=== PATIENT | male | born 1960 | race Caucasian/White ===

== ENCOUNTER 2019-04-30 05:13 | Day surgery (SDC) | payer OTHER ==
[~2019-04-30] VITALS: Ht 177.8 cm; Wt 137.9 kg
[~2019-04-30 05:13] MED LIST: XARELTO20 MG PO
[2019-04-30 05:38] LABS: BASOPHILS 0.7 % (0-2); EOSINOPHILS 3.7 % (0-7); HEMATOCRIT 44.3 % (42.0-54.0); HEMOGLOBIN 14.8 g/dL (13.5-17.5); IMMATURE GRANULOCYTES 0.5 % (0-5); LYMPHOCYTES 23.5 % (15-50); MCH 28.2 pg (26.0-34.0); MCHC 33.4 g/dL (31.0-37.0); MCV 84.4 fL (80.0-100.0); MEAN PLATELET VOLUME 8.1 fL (7.4-10.4); MONOCYTES 8.6 % (2-11); PLATELET COUNT 217 10x3/uL (130-400); RBC 5.25 10x6/uL (4.20-6.10); WBC 6.1 10x3/uL (4.8-10.8)
[2019-04-30 05:56] LABS: APTT 29.1 SECONDS (22.8-39.4); INR 0.97 (0.85-1.17); PROTIME 12.4 SECONDS (11.6-15.0)
[2019-04-30 06:01] LABS: ANION GAP 9.5 mmol/L (8-16); CALCIUM 8.3 mg/dL (8.5-10.1); CARBON DIOXIDE 29.6 mmol/L (21.0-32.0); CREATININE - SERUM 1.3 mg/dL (0.6-1.3); POTASSIUM - SERUM 4.1 mmol/L (3.5-5.1)
[2019-04-30] MEDS ORDERED: OMEPRAZOLE CAP 20M (06:10)
[2019-04-30] MEDS ORDERED: ALBUTEROL SULF8.5 GM (06:10)
[2019-04-30] MEDS ORDERED: STELARA (06:11)
[2019-04-30] MEDS ORDERED: BUSPAR5 MG (06:12)
[2019-04-30 06:41] VITALS: BP 154/72; Ht 177.8 cm; Wt 137.9 kg
[2019-04-30] MEDS ORDERED: HYDROCODON-ACE1 EA10 PO (08:20)
--- NOTE | 2019-04-30 09:41 | NUR ---
0926-REC'D FROM RR. AWAKE AND ALERT WITHOUT COMPLAINTS. VSS. DRESSING TO ABD CDI. CL IN EASY REACH,TOLERATING ICE WATER
--- NOTE | 2019-04-30 09:41 | NUR ---
FULL LIQUID TRAY TO ROOM. DENIES COMPLAINTS.
--- NOTE | 2019-04-30 11:31 | NUR ---
1105-DISCHARGE CRITERIA MET. AMBULATED TO RESTROOM AND URINTAED. REMOVED IV WITH CATH INTACT. DISPOSED INTO SHARPS CONTAINER,COVERED SITE WITH A BANDAID. DRESSING TO ABD CDI. REVIEWED DISCHARGE PAPERWORK WITH PT AND SPOUSE. VERBALIZED UNDERSTANDING. ESCORTED OUT BY VOLUNTEER VIA W/C. STABLE CONDITION WITH DISCHARGE PAPERWORK IN HAND. DRIVING HOME
--- NOTE | 2019-05-05 10:07 | OP ---
PATIENT NAME: JOSSIE BOYD JR MEDICAL RECORD: [id number] :58 LOCATION:[facility] ADMISSION DATE: SURGEON: LEONARDO SHEPHERD MD DATE OF OPERATION: 04/30/2019 PREOPERATIVE DIAGNOSES: 1. Ventral incisional hernia. 2. History of DVT, on Xarelto. 3. Morbid obesity with a BMI of 43. POSTOPERATIVE DIAGNOSES: 1. Ventral incisional hernia. 2. History of DVT, on Xarelto. 3. Morbid obesity with a BMI of 43. PROCEDURE: Ventral hernia repair with 4.[address] mesh. SURGEON: Leonardo Shepherd MD REPORT OF PROCEDURE: The patient's abdomen was prepped and draped in sterile fashion. A semicircular incision was made on the inferior aspect of the umbilicus. Electrocautery was used to dissect through the subcutaneous tissues. We came through the base of the umbilical stalk where there was a hernia sac present. The sac was fat containing. As we dissected through this, we were able to push the fatty tissue back into the abdominal cavity. We freed up the fascial ledges from the hernia sac in all directions. We then cleared off the fascia above and below using blunt dissection until we had a good place to house our mesh. A 4.[address] mesh was inserted in an underlay fashion and sutured down on all 4 sides using interrupted 0 Prolenes. We then irrigated out the wound with normal saline. The fascia was closed over the mesh using running 0 Vicryl. We inspected the area and assured there was no sign of any bleeding. The umbilicus was tacked down to the fascia using a single interrupted 3-0 Vicryl and the subcutaneous tissues were reapproximated with interrupted 3-0 Vicryl. The skin was closed with running subcutaneous 5-0 Monocryl. A total of 10 mL of 0.25% Marcaine plain was infused into the surrounding tissues and the wound was dressed appropriately. COMPLICATIONS: None. CONDITION: Stable. ANESTHESIA: General endotracheal and local. BLOOD LOSS: Minimal. TRANSINT:[id number] Voice Confirmation ID: [id number] DOCUMENT ID: [id number] OPERATIVE REPORT [id number] JOSSIE BODY JR LEONARDO SHEPHERD MD at 1007 CC: HEIDY ROBERSON DO [id number] DICTATION DATE: 04/30/19 0828 SLITTER CUT OFF OPERATOR: 04/30/19 1055 [facility] 04/30/19 [facility] [address] [id number]
== END 2019-04-30 11:05 | disposition home or self-care (01) ==
LOC: D.OPS 05:13 → D.PAN 07:15 → D.OPS 07:15
PROVIDERS: Anesthesiology; ATTEND Surgery
DX: K43.2 Incisional hernia without obstruction or gangrene (principal); Z86.718 Personal history of other venous thrombosis and embolism; Z79.01 Long term (current) use of anticoagulants; E66.01 Morbid (severe) obesity due to excess calories; Z68.41 Body mass index [BMI] 40.0-44.9, adult; Z01.812 Encounter for preprocedural laboratory examination

== ENCOUNTER 2020-04-12 07:22 | Inpatient (IN) | payer OTHER ==
[~2020-04-12] VITALS: Ht 177.8 cm; Wt 131.8 kg
[2020-04-12] VITALS (12 sets, daily range): BP systolic 114–172; BP diastolic 70–114; BMI 43.1
--- NOTE | ~2020-04-12 | OP ---
PATIENT NAME: JOSSIE BOYD JR MEDICAL RECORD: [id number] :58 LOCATION:.[facility] D.2313 ADMISSION DATE:04/12/20 SURGEON: FLOR SHEPHERD MD DATE OF OPERATION: 04/24/2020 PREOPERATIVE DIAGNOSES: 1. Respiratory failure, on the ventilator. 2. COVID. 3. Bacteremia. 4. Possible line sepsis. POSTOPERATIVE DIAGNOSES: 1. Respiratory failure, on the ventilator. 2. COVID. 3. Bacteremia. 4. Possible line sepsis. PROCEDURES: 1. Left subclavian vein Trialysis catheter exchange. 2. Left radial arterial line placement. SURGEON: Flor Shepherd MD REPORT OF PROCEDURE: The patient's left wrist was prepped and draped in sterile fashion. Using a 20-gauge dart, I was able to access the patient's left radial artery. We had good pulsatile flow. We were able to suture this into place with 3-0 silks and got a good pressure reading with the systolic of 100. We then applied a dressing to this area. We then approached the patient's left subclavian region where there was an indwelling 20 cm Trialysis catheter. We prepped and draped this area including the Trialysis catheter. A wire was advanced through the distal port and we were able to remove the indwelling catheter. A new 20 cm Trialysis catheter was inserted over the wire and sutured into place with 3-0 nylons. This flushed appropriately with normal saline and had good blood return. COMPLICATIONS: None. CONDITION: Critical. ANESTHESIA: General endotracheal. BLOOD LOSS: Minimal. Procedure done in the ICU at the bedside. TRANSINT:[id number] Voice Confirmation ID: [id number] DOCUMENT ID: [id number] OPERATIVE REPORT [id number] JOSSIE BOYD JR FLOR SHEPHERD MD CC: [id number] DICTATION DATE: 04/24/20 1024 NET PROGRAMMER: 04/24/20 1339 ADM IN [facility] [address] [place] [address]
[~2020-04-12 07:22] MED LIST changes: +ALBUTEROL SULF8.5 GM; +BUSPAR5 MG; +HYDROCODON-ACE1 EA10 PO; +OMEPRAZOLE CAP 20M; +STELARA
[2020-04-12 08:27] LABS: ANION GAP 9.4 mmol/L (8-16); CALCIUM 8.3 mg/dL (8.5-10.1); CARBON DIOXIDE 26.6 mmol/L (21.0-32.0); CREATININE - SERUM 1.6 mg/dL (0.6-1.3)
[2020-04-12 08:29] LABS: BASOPHILS 0.2 % (0-2); EOSINOPHILS 0.2 % (0-7); HEMATOCRIT 39.2 % (42.0-54.0); HEMOGLOBIN 12.6 g/dL (13.5-17.5); LYMPHOCYTES 3.8 % (15-50); MCH 27.7 pg (26.0-34.0); MCHC 32.1 g/dL (31.0-37.0); MCV 86.2 fL (80.0-100.0); MEAN PLATELET VOLUME 8.7 fL (7.4-10.4); MONOCYTES 2.1 % (2-11); NEUTROPHILS 92.7 % (40-80); PLATELET COUNT 233 10x3/uL (130-400); RBC 4.55 10x6/uL (4.20-6.10); WBC 12.6 10x3/uL (4.8-10.8)
[2020-04-12 08:46] LABS: ALBUMIN 2.4 g/dL (3.4-5.0); BILIRUBIN - TOTAL 0.7 mg/dL (0.2-1.3); PROTEIN - SERUM 6.6 g/dL (6.4-8.2)
[2020-04-12 08:58] LABS: C-REACTIVE PROTEIN 24.6 mg/dL (0.0-0.9)
--- NOTE | 2020-04-12 10:45 | NUR ---
ZITHROMAX STOPPED AT THIS TIME.
--- NOTE | 2020-04-12 11:00 | NUR ---
PT LAYINGIN BED. NO DISTRESS NOTED. COLOR WNL FOR RACE. WILL CONTINUE TO MONITOR.
--- NOTE | 2020-04-12 12:08 | NUR ---
PT REPORTS IMPROVEMENT IN COUGH AT THIS TIME.
--- NOTE | 2020-04-12 12:08 | NUR ---
PT PROVIDED WITH LUNCH TRAY.
[2020-04-12 14:45] LABS: APTT 42.2 SECONDS (22.8-39.4); INR 1.6 (0.85-1.17); PROTIME 18.9 SECONDS (11.6-15.0)
[2020-04-12 14:46] LABS: D-DIMER-QUANTITATIVE 0.28 ug/mLFEU (0.20-0.54)
[2020-04-12 14:56] LABS: % SATURATION 7 % (15-55); IRON 15 ug/dl (35-150); TOTAL IRON BIND CAPACITY 190 ug/dl (260-445); UNSAT IRON BIND CAPACITY 175 ug/dl (150-375)
[2020-04-12 15:09] LABS: CKMB 1.2 U/L (0.0-3.6); CREATINE KINASE 106 UL (21-232); MAGNESIUM - SERUM 1.7 mg/dL (1.8-2.4)
[2020-04-12 15:10] LABS: TROPONIN-I < 0.017 ng/mL (0.000-0.060)
--- NOTE | 2020-04-12 15:48 | NUR ---
CALLED REPORT TO STALIN
--- NOTE | 2020-04-12 17:51 | NUR ---
PT ARRIVED IN THE UNIT. SEE ASSESSMENT IN THE PTS FLOW SHEET. PT AMBULATORY BUT BECAME SOB WHENEVER HE LAYED IN BED. VSS. PT ON A STARR MASK. VSS AT THIS TIME. PO FLUIDS PROVIDED. CALL LIGHT IN REACH. WILL CONT NPOC.
--- NOTE | 2020-04-12 18:35 | NUR ---
DR ROMAN PAGED R/T NO MEDICATIO ORDERED. DR ROMAN PAGED BACK AND STATED HE WILL PUT THE ORDERS IN SHORTLY.
[2020-04-12 20:40] LABS: CKMB 3.1 U/L (0.0-3.6); CREATINE KINASE 139 UL (21-232)
[2020-04-12 20:59] LABS: TROPONIN-I < 0.017 ng/mL (0.000-0.060)
--- NOTE | 2020-04-12 23:36 | NUR ---
2230 PT SPO2 DECREASED TO 84 SUSTAINED ON VENTIMASK. NRB APPLIED AT 15L. SPO2 INCREASED TO 92% NAD OR NEEDS AT THIS TIME. WILL CONTINUE TO MONITOR
[2020-04-13] VITALS (44 sets, daily range): BP systolic 74–169; BP diastolic 43–118; Ht 177.8 cm; Wt 131.8 kg
--- NOTE | 2020-04-13 00:33 | NUR ---
0015 CT MANAGER PAGED DUE TO BP 168/123 0030 HYDRALAZINE 10 MG IV GIVEN. NAD OR NEEDS AT THIS TIME. WILL CONTINUE TO MONITOR
[2020-04-13 02:12] LABS: CKMB 3.4 U/L (0.0-3.6); CREATINE KINASE 174 UL (21-232); TROPONIN-I < 0.017 ng/mL (0.000-0.060)
--- NOTE | 2020-04-13 02:23 | NUR ---
PATIENT INTUBATED AT THIS TIME
--- NOTE | 2020-04-13 04:05 | NUR ---
0200 ANESTHESIA AT BEDSIDE FOR PT INTUBATION. SEDATION STARTED PER MD ORDERS. ETT, OGT, BLACKWELL CATH STARTED PER ORDERS. NAD AT THIS TIME. WILL CONTINUE TO MONITOR
[2020-04-13 04:55] LABS: BASOPHILS 0.1 % (0-2); EOSINOPHILS 0 % (0-7); HEMATOCRIT 37.8 % (42.0-54.0); HEMOGLOBIN 11.8 g/dL (13.5-17.5); IMMATURE GRANULOCYTES 0.3 % (0-5); LYMPHOCYTES 3.1 % (15-50); MCH 27.4 pg (26.0-34.0); MCHC 31.2 g/dL (31.0-37.0); MCV 87.9 fL (80.0-100.0); MEAN PLATELET VOLUME 8.4 fL (7.4-10.4); MONOCYTES 3.3 % (2-11); NEUTROPHILS 93.2 % (40-80); PLATELET COUNT 243 10x3/uL (130-400); RDW 14.4 % (11.5-14.5); WBC 11.6 10x3/uL (4.8-10.8)
[2020-04-13 05:37] LABS: ALBUMIN 2.2 g/dL (3.4-5.0); ANION GAP 8.3 mmol/L (8-16); BILIRUBIN - TOTAL 0.28 mg/dL (0.2-1.3); CALCIUM 7.6 mg/dL (8.5-10.1); CARBON DIOXIDE 28.8 mmol/L (21.0-32.0); CREATININE - SERUM 1.8 mg/dL (0.6-1.3); MAGNESIUM - SERUM 1.9 mg/dL (1.8-2.4); PHOSPHOROUS 4.8 mg/dL (2.5-4.9); POTASSIUM - SERUM 4.1 mmol/L (3.5-5.1); PROTEIN - SERUM 6.2 g/dL (6.4-8.2)
--- NOTE | 2020-04-13 06:42 | NUR ---
0500 SPOKE WITH PT ON THE PHONE. SHE IS AWARE OF THE PATIENT'S CHANGE IN CONDITION. WILL CONTINUW TO HANS
--- NOTE | 2020-04-13 10:40 | NUR ---
SPOKE WITH BARRY BOYD. SHE GAVE CONSENT FOR YAYO AND CVL PLACEMENT.
--- NOTE | 2020-04-13 11:00 | NUR ---
DR MEANS IN THE UNIT AND WILL PLACE YAYO AND CVL.
--- NOTE | 2020-04-13 14:03 | NUR ---
DR MEANS AT THE PTS BEDSIDE. LEFT FEMORAL YAYO PLACED AND LEFT SUBCLAVIAN CVL PLACED. CXR PLACED.
--- NOTE | 2020-04-13 14:30 | NUR ---
PT HYPOTENSIVE 60/40'S. DR ROBERSON IN THE UNIT. OK TO START MURALI. AFTER MURALI WAS INITIATED, IT WAS MAXED OUT. DR ROMAN NOTIFIED. STOP MURALI AND START LEVOPHED. GIVE 12.5 ALBUMIN NOW.
--- NOTE | 2020-04-13 15:55 | NUR ---
PT DESTATING TO 79%. RT IN THE ROOM. DR ROMAN NOTIFIED. INCREASE PEEP TO 30 FOR 30 SECONDS AND THE CHANGE PEEP SETTINGS TO 14. RT NOTIFIED. OBTAIN ABG AFTERWARDS.
--- NOTE | 2020-04-13 16:36 | NUR ---
ABG RESULTS READ TO DR ROMAN AND MADE AWARE OF THE PT BEING ANURIC. STAT BMP AND GIVE 1 GRAM CA CHOLORIDE.
[2020-04-13 16:48] LABS: ANION GAP 11.9 mmol/L (8-16); CALCIUM 7.6 mg/dL (8.5-10.1); CARBON DIOXIDE 26.4 mmol/L (21.0-32.0)
[2020-04-13 17:11] LABS: CREATININE - SERUM 3.4 mg/dL (0.6-1.3); POTASSIUM - SERUM 5.3 mmol/L (3.5-5.1)
--- NOTE | 2020-04-13 17:49 | NUR ---
DR ROMAN PAGED ABOUT BMP. STOP IV FLUIDS, DC REMDESIVIR. CONSULT RENAL.
--- NOTE | 2020-04-13 18:19 | NUR ---
SPOKE WITH DR MCCALLUM ABOUT CONSULT. GIVE 5 UNITS INSULIN NOW, 5000 UNITS HEPARIN BID. BMP AT 2200 AND CALL WITH RESULTS.
[2020-04-14] VITALS (52 sets, daily range): BP systolic 84–200; BP diastolic 50–160
--- NOTE | 2020-04-14 05:55 | NUR ---
0500 UNABLE TO OBTAIN LABS VIA [facility]. CALLED LAB AND SPOKE WITH ENRIQUE Cheung/Ron UNABLE TO OBTAIN LAB FROM [facility]. SHE STATES THAT A HYGIENE TEACHER WILL COME OBTAIN LABS RICHELLE.
--- NOTE | 2020-04-14 06:29 | PRO ---
PATIENT:JOSSIE BOYD JR MEDICAL RECORD: [id number] : 58 LOCATION:.[facility] D.2313 ADMISSION DATE: 04/12/20 PROCEDURE PERFORMED BY: ASHLEE MEANS MD DATE OF PROCEDURE: 04/13/2020 We were consulted to place a central IV access and arterial line for monitoring in this COVID positive patient. The patient is currently on vasopressors also. The patient is currently intubated. A left femoral arterial line was placed using sterile conditions and ultrasound guidance. Sterile conditions were placed using a dressing and Biopatch. A left subclavian for central IV access was obtained and using sterile conditions. Under Betadine prep and drape, a Seldinger wire technique, a triple lumen was placed over this wire and all ports were aspirated after placement of the triple lumen catheter into the left subclavian vein. The catheter was then secured with 2-0 Prolene and a Biopatch was placed and a dressing used to secure the Biopatch and triple lumen in place. TRANSINT:[id number] Voice Confirmation ID: [id number] DOCUMENT ID: [id number] ASHLEE MEANS MD at 0629 CC: [id number] DICTATION DATE: 04/13/20 1527 CREW CALLER: 04/14/20 0420 ADM IN [id number] [place] [address]
--- NOTE | 2020-04-14 06:44 | NUR ---
0615 LABS DRAWN VIA [facility] AND DELIVERED TO THE LAB
[2020-04-14 06:53] LABS: BASOPHILS 0.2 % (0-2); EOSINOPHILS 0 % (0-7); HEMATOCRIT 38.6 % (42.0-54.0); HEMOGLOBIN 12.1 g/dL (13.5-17.5); IMMATURE GRANULOCYTES 1.1 % (0-5); LYMPHOCYTES 5.2 % (15-50); MCH 27.5 pg (26.0-34.0); MCHC 31.3 g/dL (31.0-37.0); MCV 87.7 fL (80.0-100.0); MEAN PLATELET VOLUME 8.2 fL (7.4-10.4); NEUTROPHILS 88.5 % (40-80); PLATELET COUNT 244 10x3/uL (130-400); RDW 14.6 % (11.5-14.5); WBC 10.5 10x3/uL (4.8-10.8)
[2020-04-14 07:40] LABS: ALBUMIN 1.9 g/dL (3.4-5.0); BILIRUBIN - TOTAL 0.24 mg/dL (0.2-1.3); C-REACTIVE PROTEIN 14.6 mg/dL (0.0-0.9); CARBON DIOXIDE 19.8 mmol/L (21.0-32.0); CREATININE - SERUM 4.1 mg/dL (0.6-1.3); MAGNESIUM - SERUM 1.9 mg/dL (1.8-2.4); PROTEIN - SERUM 5.5 g/dL (6.4-8.2)
[2020-04-14 07:41] LABS: ANION GAP 17.3 mmol/L (8-16); POTASSIUM - SERUM 4.1 mmol/L (3.5-5.1)
[2020-04-14 07:45] LABS: CALCIUM 6.6 mg/dL (8.5-10.1)
--- NOTE | 2020-04-14 09:08 | NUR ---
PAGED DR. SHEPHERD RE: TRIALYSIS CATH PLACEMENT
--- NOTE | 2020-04-14 09:45 | NUR ---
CONSENT FOR TRIALYSIS CATH GIVEN BY BARRY BOYD AND WITNESSED BY DANIAL ARIAS RN
--- NOTE | 2020-04-14 10:50 | NUR ---
FIO2 TITRATED TO 80% BY TERENCE WITH RT
--- NOTE | 2020-04-14 11:15 | NUR ---
DR. SHEPHERD AT BEDSIDE FOR TRIALYSIS CATH PLACEMENT
--- NOTE | 2020-04-14 11:50 | NUR ---
DR. ROBERSON AT BEDSIDE, ORDERED VIT C & D TO START TODAY, WILL DISCUSS ZINC WITH DR ROMAN BEFORE ADDING TO MED PROFILE
--- NOTE | 2020-04-14 13:30 | NUR ---
HD BEGAN, VSS, WILL CONTINUE TO MONITOR
--- NOTE | 2020-04-14 15:30 | NUR ---
HD COMPLETED WITHOUT DIFFICULTY, 2L OFF
--- NOTE | 2020-04-14 16:30 | NUR ---
PC FROM [facility], NEW ORDERS GIVEN FOR 1800 BMP
[2020-04-14 19:12] LABS: ANION GAP 17.1 mmol/L (8-16); CALCIUM 7.2 mg/dL (8.5-10.1); CARBON DIOXIDE 24.6 mmol/L (21.0-32.0); CREATININE - SERUM 4.9 mg/dL (0.6-1.3); POTASSIUM - SERUM 4.7 mmol/L (3.5-5.1)
[2020-04-15] VITALS (41 sets, daily range): BP systolic 80–157; BP diastolic 49–85
[2020-04-15 05:24] LABS: BASOPHILS 0.1 % (0-2); EOSINOPHILS 0.1 % (0-7); HEMATOCRIT 34.8 % (42.0-54.0); IMMATURE GRANULOCYTES 1.9 % (0-5); LYMPHOCYTES 9.6 % (15-50); MCH 27.7 pg (26.0-34.0); MCHC 31.6 g/dL (31.0-37.0); MCV 87.7 fL (80.0-100.0); MEAN PLATELET VOLUME 8.4 fL (7.4-10.4); MONOCYTES 8.9 % (2-11); NEUTROPHILS 79.4 % (40-80); RBC 3.97 10x6/uL (4.20-6.10); RDW 14.7 % (11.5-14.5)
[2020-04-15 05:46] LABS: PLATELET COUNT 185 10x3/uL (130-400); WBC 7.4 10x3/uL (4.8-10.8)
[2020-04-15 05:57] LABS: ALBUMIN 2.1 g/dL (3.4-5.0); ANION GAP 17.6 mmol/L (8-16); BILIRUBIN - TOTAL 0.24 mg/dL (0.2-1.3); CALCIUM 7.1 mg/dL (8.5-10.1); CARBON DIOXIDE 24.3 mmol/L (21.0-32.0); MAGNESIUM - SERUM 2.2 mg/dL (1.8-2.4); POTASSIUM - SERUM 4.9 mmol/L (3.5-5.1)
[2020-04-15 06:01] LABS: CREATININE - SERUM 6.2 mg/dL (0.6-1.3)
[2020-04-15 08:13] LABS: HEPATITIS C ANTIBODY 0.2 (0.0-0.9)
--- NOTE | 2020-04-15 13:54 | NUR ---
Nutrition Follow-up: Chart reviewed. Patient dialysis yesterday, possible HD again today. Remaind intubated and sedated at this time. Diet: NPO Last BM: 04/13/20. Wt: 300# (04/13/20) Meds noted: levophed, diprivan @ 28.4mL/hr = 750kcal, vit D, vit C Labs noted: BUN 58(H), Cr 6.2(H), GFR 10(L) Recommend begin TF as soon as medically feasible. Recommend Pulmocare @ 25mL/hr with increase to goal rate of 50mL/hr. RD following.
--- NOTE | 2020-04-15 21:16 | MORECARE ---
CASE MANAGEMENT DISCHARGE SUMMARY PATIENT: JOSSIE BOYD UNIT: [id number] ADM DATE: 04/12/20 AGE: 59 : 58 SEX: M ROOM/BED: D.2313 AUTHOR: RONAL DELGADO PHYSICIAN: REFERRING PHYSICIAN: SHA GARZA MD DATE OF SERVICE: 04/15/20 Discharge Plan Patient Name: JOSSIE BOYD [facility] [facility] 1960 Planned Disposition: Anticipated Discharge Date: Discharge Date: Expected LOS: Initial Reviewer: [email or web address] Initial Review Date: 04/12/2020 Generated: 04/15/20 10:15 pm Patient Name: JOSSIE BOYD Page 34235 at 2116 All edits/amendments must be made on the electronic document DICTATION DATE: 04/15/202115 GLASSWORKER: VIRGINIE 04/15/202115 RPT#: [id number] DC DATE: STATUS: ADM IN [facility] [address] [place] [address] END OF REPORT
--- NOTE | 2020-04-15 21:23 | MORECARE ---
CASE MANAGEMENT DISCHARGE SUMMARY PATIENT: JOSSIE BOYD UNIT: [id number] ADM DATE: 04/12/20 AGE: 59 : 58 SEX: M ROOM/BED: D.2313 AUTHOR: SANDY,DOC PHYSICIAN: REFERRING PHYSICIAN: SHA GARZA MD DATE OF SERVICE: 04/15/20 Discharge Plan Patient Name: JOSSIE BOYD Facility: [facility]:[place] : 1960 Planned Disposition: Anticipated Discharge Date: Discharge Date: Expected LOS: Initial Reviewer: [email or web address] Initial Review Date: 04/12/2020 Generated: 04/15/20 10:22 pm Comments DCP- Discharge Planning Updated by [email or web address]: Luda Moore on 04/15/20 8:[address] Patient Name: JOSSIE BOYD Admission Status: ER Accout number: [id number] Admission Date: 04-12-2020 : 1960 Admission Diagnosis:COVID-19 Attending: SHA GARZA Current LOS: 3 Anticipated DC Date: Planned Disposition: Primary Insurance: [employer] PPO Discharge Planning Comments: CM called and spoke with patient's Veronica to complete initial dc planning assessment. CM educated patient on the CM role and verbal consent given by patient to complete assessment. Patient lives at home with family. Patient is independent. At discharge patient plans to return home and feels this is a safe discharge. CM discussed availability of home health, rehab services, and medical equipment. Patient will have family to transport home. Patient denied known discharge needs at this time. CM will continue to follow and will assist as needed with dc plans/needs. Surgical Product Sales Consultant: Luda Moore DCPIA - Discharge Planning Initial Assessment Updated by [email or web address]: Luda Moore on 04/15/20 9:15 pm * Is the patient Alert and Oriented? No * How many steps to enter\exit or inside your home? * PCP ANNALISEO * Pharmacy [facility] * Preadmission Environment Home with Family * ADLs Independent * Equipment None * List name and contact numbers for known caregivers / representatives who currently or will assist patient after discharge: VERONICA BOYD - - [phone] * Verbal permission to speak to the caregivers and representatives has been obtained from the patient. Yes * Community resources currently utilized None * Additional services required to return to the preadmission environment? No * Can the patient safely return to the preadmission environment? Yes * Has this patient been hospitalized within the prior 30 days at any hospital? No Last DP export: 04/15/20 8:16 p Patient Name: JOSSIE BOYD Page [phone] at 2123 All edits/amendments must be made on the electronic document DICTATION DATE: 04/15/202122 MATERIAL PROCESSOR: VIRGINIE 04/15/202122 RPT#: [id number] DC DATE: STATUS: ADM IN [facility] [address] [place] [address] END OF REPORT
[2020-04-16] VITALS (24 sets, daily range): BP systolic 91–143; BP diastolic 50–77
[2020-04-16 05:25] LABS: BASOPHILS 0.2 % (0-2); EOSINOPHILS 0.3 % (0-7); IMMATURE GRANULOCYTES 4.6 % (0-5); LYMPHOCYTES 9.2 % (15-50); MCH 27.4 pg (26.0-34.0); MCHC 31.4 g/dL (31.0-37.0); MCV 87.3 fL (80.0-100.0); MEAN PLATELET VOLUME 8.4 fL (7.4-10.4); MONOCYTES 8.1 % (2-11); NEUTROPHILS 77.6 % (40-80); PLATELET COUNT 193 10x3/uL (130-400); RBC 4.01 10x6/uL (4.20-6.10); RDW 14.8 % (11.5-14.5); WBC 8.7 10x3/uL (4.8-10.8)
[2020-04-16 05:41] LABS: ALBUMIN 2.5 g/dL (3.4-5.0); ANION GAP 18.3 mmol/L (8-16); BILIRUBIN - TOTAL 0.42 mg/dL (0.2-1.3); CARBON DIOXIDE 24.6 mmol/L (21.0-32.0); CREATININE - SERUM 7.2 mg/dL (0.6-1.3); MAGNESIUM - SERUM 2.3 mg/dL (1.8-2.4); POTASSIUM - SERUM 4.9 mmol/L (3.5-5.1); PROTEIN - SERUM 6.4 g/dL (6.4-8.2)
[2020-04-16 05:43] LABS: CALCIUM 6.9 mg/dL (8.5-10.1)
--- NOTE | 2020-04-16 18:47 | NUR ---
0800-RECIEVED PER FLOW SHEET-RESPONDS TO VERBAL-NOTED SATS 90%-- 0900-DR ROMAN AT BEDSIDE-STATUS REPORT GIVEN-BLOOD BANK CLARIFIED COVID ANTIBODY PLASMA ORDER-AND COMPLETED BY DR ROMAN-LEVOPHED GTT STARTED AT [facility]-FOR DIALYSIS 0945-CALLED WITH PLAN FOR DIALYSIS AND PLASMA-CONSENT OBTAINED-FOR SAME 1300-DIALYSIS SET UP IN PROGRESS- NOTIFIED OF SAME 1400-NOTED DECREASE IN O2 SAT TO 77-DIALYSIS IN PROGRESS-DR ROMAN NOTIFIED-AT BEDSIDE-RT CALLED -SEE RT NOTE-LUNG RECOVERY DONE PEEP 30 FOR 30SEC-WITH RETURN TO PEEP OF 14-SAT INCREASE TO 88%-DIALYSIS [id number]-LEVOPHED AT [facility] 1515-DIALYSIS COMPLETED 1600- CALLED WITH UPDATE ON DIALYSIS RESULTS AND CURRENT STAT-MADE AWARE FFP COMPLETED 1800-COMPLETE AM CARE DONE
[2020-04-17] VITALS (49 sets, daily range): BP systolic 78–146; BP diastolic 47–78
[2020-04-17 06:04] LABS: BASOPHILS 0.2 % (0-2); EOSINOPHILS 0.2 % (0-7); HEMATOCRIT 35.1 % (42.0-54.0); IMMATURE GRANULOCYTES 5.7 % (0-5); LYMPHOCYTES 6.4 % (15-50); MCH 27.3 pg (26.0-34.0); MCHC 31.3 g/dL (31.0-37.0); MCV 87.1 fL (80.0-100.0); MEAN PLATELET VOLUME 8.7 fL (7.4-10.4); MONOCYTES 6.1 % (2-11); NEUTROPHILS 81.4 % (40-80); PLATELET COUNT 223 10x3/uL (130-400); RBC 4.03 10x6/uL (4.20-6.10); RDW 14.7 % (11.5-14.5)
[2020-04-17 06:08] LABS: WBC 11.6 10x3/uL (4.8-10.8)
[2020-04-17 06:22] LABS: ALBUMIN 2.5 g/dL (3.4-5.0); ANION GAP 16.1 mmol/L (8-16); BILIRUBIN - TOTAL 0.53 mg/dL (0.2-1.3); CALCIUM 7.2 mg/dL (8.5-10.1); CARBON DIOXIDE 27.1 mmol/L (21.0-32.0); CREATININE - SERUM 7.7 mg/dL (0.6-1.3); MAGNESIUM - SERUM 2.6 mg/dL (1.8-2.4); POTASSIUM - SERUM 5.2 mmol/L (3.5-5.1); PROTEIN - SERUM 6.7 g/dL (6.4-8.2)
--- NOTE | 2020-04-17 11:56 | NUR ---
NOTED ABP 78/42-NIBP-82/48-STARTED LEVOPHED AT [facility]-DR ROBERSON MADE AWRE- CALLED UNIT AND UPDATE GIVEN
--- NOTE | 2020-04-17 12:16 | NUR ---
DR ROBERSON AT BEDSIDE-SPOKE WITH AND UPDATED CURRENT NEED FOR LEVOPHED AND PLANNED DIALYSIS FOR TODAY
[2020-04-18] VITALS (23 sets, daily range): BP systolic 91–144; BP diastolic 55–76
[2020-04-18 06:37] LABS: MAGNESIUM - SERUM 2.4 mg/dL (1.8-2.4)
[2020-04-18 06:46] LABS: BASOPHILS 0.2 % (0-2); EOSINOPHILS 0.9 % (0-7); HEMATOCRIT 30.6 % (42.0-54.0); HEMOGLOBIN 9.9 g/dL (13.5-17.5); IMMATURE GRANULOCYTES 7.3 % (0-5); LYMPHOCYTES 6.6 % (15-50); MCHC 32.4 g/dL (31.0-37.0); MCV 86.7 fL (80.0-100.0); MEAN PLATELET VOLUME 8.4 fL (7.4-10.4); MONOCYTES 6.3 % (2-11); NEUTROPHILS 78.7 % (40-80); PLATELET COUNT 204 10x3/uL (130-400); RBC 3.53 10x6/uL (4.20-6.10); RDW 14.8 % (11.5-14.5); WBC 9.4 10x3/uL (4.8-10.8)
[2020-04-18 06:55] LABS: ANION GAP 17.7 mmol/L (8-16); CARBON DIOXIDE 21.8 mmol/L (21.0-32.0); CREATININE - SERUM 7.3 mg/dL (0.6-1.3); POTASSIUM - SERUM 4.5 mmol/L (3.5-5.1)
[2020-04-18 06:57] LABS: CALCIUM 6.4 mg/dL (8.5-10.1)
--- NOTE | 2020-04-18 07:15 | NUR ---
REPORT RECIEVED, SHIFT ASSESSMENT COMPLETE, PT IS SEDATED ON VENT, ON 80% FIO2, ALL PPP, VSS, WILL CON'T TO MONITOR
--- NOTE | 2020-04-18 13:05 | NUR ---
Nutrition follow-up: Pt intubated, sedated with propofol @ 32.4 ml/hr Nepro started @ 30 ml/hr Levophed in use Labs reviewed Wt: 300# Recommend Nepro at goal rate of 50 ml/hr RDN following.
[2020-04-19] VITALS (24 sets, daily range): BP systolic 87–145; BP diastolic 5–79
[2020-04-19 08:37] LABS: BASOPHILS 0.2 % (0-2); EOSINOPHILS 1.2 % (0-7); HEMATOCRIT 36.1 % (42.0-54.0); HEMOGLOBIN 11.7 g/dL (13.5-17.5); IMMATURE GRANULOCYTES 8.8 % (0-5); LYMPHOCYTES 4.6 % (15-50); MCH 27.8 pg (26.0-34.0); MCHC 32.4 g/dL (31.0-37.0); MCV 85.7 fL (80.0-100.0); MEAN PLATELET VOLUME 8.2 fL (7.4-10.4); MONOCYTES 4.2 % (2-11); PLATELET COUNT 226 10x3/uL (130-400); RBC 4.21 10x6/uL (4.20-6.10); RDW 14.6 % (11.5-14.5)
[2020-04-19 08:41] LABS: WBC 14.3 10x3/uL (4.8-10.8)
[2020-04-19 09:25] LABS: ALBUMIN 2.5 g/dL (3.4-5.0); ANION GAP 19.2 mmol/L (8-16); BILIRUBIN - TOTAL 0.66 mg/dL (0.2-1.3); CALCIUM 7.7 mg/dL (8.5-10.1); CARBON DIOXIDE 24.6 mmol/L (21.0-32.0); CREATININE - SERUM 8.4 mg/dL (0.6-1.3); POTASSIUM - SERUM 4.8 mmol/L (3.5-5.1); PROTEIN - SERUM 7.5 g/dL (6.4-8.2)
[2020-04-20] VITALS (24 sets, daily range): BP systolic 91–149; BP diastolic 49–775
[2020-04-20 05:53] LABS: BASOPHILS 0.3 % (0-2); EOSINOPHILS 1.2 % (0-7); HEMATOCRIT 32.8 % (42.0-54.0); HEMOGLOBIN 10.6 g/dL (13.5-17.5); IMMATURE GRANULOCYTES 8.6 % (0-5); LYMPHOCYTES 4.6 % (15-50); MCH 27.2 pg (26.0-34.0); MCHC 32.3 g/dL (31.0-37.0); MCV 84.3 fL (80.0-100.0); MEAN PLATELET VOLUME 8.3 fL (7.4-10.4); MONOCYTES 4.7 % (2-11); NEUTROPHILS 80.6 % (40-80); PLATELET COUNT 238 10x3/uL (130-400); RBC 3.89 10x6/uL (4.20-6.10); RDW 14.5 % (11.5-14.5); WBC 11.9 10x3/uL (4.8-10.8)
[2020-04-20 06:14] LABS: ALBUMIN 2.1 g/dL (3.4-5.0); BILIRUBIN - TOTAL 0.49 mg/dL (0.2-1.3); CALCIUM 7.1 mg/dL (8.5-10.1); CARBON DIOXIDE 23.1 mmol/L (21.0-32.0); CREATININE - SERUM 6.3 mg/dL (0.6-1.3); POTASSIUM - SERUM 4.1 mmol/L (3.5-5.1); PROTEIN - SERUM 6.5 g/dL (6.4-8.2)
[2020-04-20 06:22] LABS: C-REACTIVE PROTEIN 18.6 mg/dL (0.0-0.9)
[2020-04-20 08:40] LABS: CREATINE KINASE 3654 UL (21-232)
--- NOTE | 2020-04-20 12:56 | OP ---
PATIENT NAME: JOSSIE BOYD JR MEDICAL RECORD: [id number] :58 LOCATION:[facility] D.2313 ADMISSION DATE:04/12/20 SURGEON: FLOR SHEPHERD MD DATE OF OPERATION: 04/14/2020 PREOPERATIVE DIAGNOSES: 1. Acute renal failure. 2. Acute respiratory failure on the ventilator. 3. Pneumonia. 4. COVID positive. POSTOPERATIVE DIAGNOSES: 1. Acute renal failure. 2. Acute respiratory failure on the ventilator. 3. Pneumonia. 4. COVID positive. PROCEDURE: Left subclavian vein CVL exchange for Trialysis catheter. SURGEON: Flor Shepherd MD REPORT OF PROCEDURE: The patient's left chest and indwelling central venous line were prepped and draped in sterile fashion. The sutures were cut loose and a wire was placed through the distal port. We then removed the catheter and place the Trialysis dilator over the wire followed by the 20 cm Trialysis catheter. The catheter aspirated nonpulsatile dark blood and flushed easily in all 3 ports. This was sutured into place with 3-0 nylons and dressed appropriately. COMPLICATIONS: None. CONDITION: Stable. ANESTHESIA: General endotracheal. BLOOD LOSS: Minimal. Procedure done in the ICU at the bedside. TRANSINT:[id number] Voice Confirmation ID: [id number] DOCUMENT ID: [id number] FLOR SHEPHERD MD at 1256 CC: [id number] DICTATION DATE: 04/14/20 1313 MUSEUM CURATOR: 04/14/20 1608 ADM IN [address] [place] [address]
--- NOTE | 2020-04-20 13:30 | NUR ---
Nutrition follow-up: Intubated, sedated Nepro TF off at this time 2/2 high residuals and no BM per Magdalena RN Labs reviewed Wt: 300# Pt now on Fentenayl instead of propofol for sedation Recommend adding Reglan and restarting Nepro @ 20 ml/hr with increase to goal rate of 50 ml/hr RDN following.
[2020-04-21] VITALS (24 sets, daily range): BP systolic 88–140; BP diastolic 49–90
[2020-04-21 06:21] LABS: BASOPHILS 0.3 % (0-2); HEMATOCRIT 34.8 % (42.0-54.0); HEMOGLOBIN 11.3 g/dL (13.5-17.5); IMMATURE GRANULOCYTES 2.5 % (0-5); LYMPHOCYTES 2.6 % (15-50); MCH 27.5 pg (26.0-34.0); MCHC 32.5 g/dL (31.0-37.0); MCV 84.7 fL (80.0-100.0); MEAN PLATELET VOLUME 8.6 fL (7.4-10.4); MONOCYTES 2.8 % (2-11); NEUTROPHILS 90.8 % (40-80); PLATELET COUNT 254 10x3/uL (130-400); RBC 4.11 10x6/uL (4.20-6.10); RDW 14.6 % (11.5-14.5); WBC 14.3 10x3/uL (4.8-10.8)
[2020-04-21 06:51] LABS: ANION GAP 18.4 mmol/L (8-16); CALCIUM 7.2 mg/dL (8.5-10.1); CARBON DIOXIDE 20.5 mmol/L (21.0-32.0); CREATININE - SERUM 6.1 mg/dL (0.6-1.3); POTASSIUM - SERUM 3.9 mmol/L (3.5-5.1)
[2020-04-21 06:58] LABS: C-REACTIVE PROTEIN 19.3 mg/dL (0.0-0.9)
[2020-04-22] VITALS (27 sets, daily range): BP systolic 70–135; BP diastolic 44–74
[2020-04-22 03:33] LABS: BILIRUBIN NEGATIVE (NEGATIVE); KETONE NEGATIVE (NEGATIVE); NITRITE NEGATIVE (NEGATIVE); UROBILINOGEN NORMAL (NORMAL)
[2020-04-22 03:35] LABS: BACTERIA MODERATE /hpf (NONE SEEN); EPITHELIAL CELLS 0-5 /hpf (0-5)
[2020-04-22 06:11] LABS: ANION GAP 19.2 mmol/L (8-16); CALCIUM 8.4 mg/dL (8.5-10.1); CARBON DIOXIDE 23.8 mmol/L (21.0-32.0); CREATININE - SERUM 7.8 mg/dL (0.6-1.3); VANCOMYCIN - RANDOM 5.1 ug/mL (10.0-20.0)
[2020-04-22 06:35] LABS: HEMATOCRIT 37.9 % (42.0-54.0); MCH 27.1 pg (26.0-34.0); MCHC 31.7 g/dL (31.0-37.0); MCV 85.6 fL (80.0-100.0); MEAN PLATELET VOLUME 8.2 fL (7.4-10.4); PLATELET COUNT 272 10x3/uL (130-400); RBC 4.43 10x6/uL (4.20-6.10); RDW 14.6 % (11.5-14.5); WBC 20.2 10x3/uL (4.8-10.8)
[2020-04-22 09:05] LABS: ALBUMIN 2.1 g/dL (3.4-5.0); BILIRUBIN - DIRECT 0.26 mg/dL (0.00-0.30); BILIRUBIN - INDIRECT 0.33 mg/dL (0.00-1.00); BILIRUBIN - TOTAL 0.59 mg/dL (0.2-1.3); PROTEIN - SERUM 7.5 g/dL (6.4-8.2)
--- NOTE | 2020-04-22 10:59 | NUR ---
Nutrition follow-up: Intubated, sedated with propofol @ 16.2 ml/hr Nepro @ 10 ml/hr Labs reviewed; dialysis daily Wt: 300# Pt with elevated residuals; no BM charted RDN following.
--- NOTE | 2020-04-22 11:19 | NUR ---
BRANDON DRAKE AND I CALLED AND SPOKE TO THE ABOUT PT UPDATE AND THE NEED FOR POSSIBLE VISITATION IN THE NEAR FUTURE. WAITING FOR DR CAMP FOR UPDATE TO .
[2020-04-22 13:15] LABS: ANISOCYTOSIS OCC; LYMPHOCYTES 8 % (15-50); MONOCYTES 9 % (2-11); NEUTROPHILS 74 % (40-80); PLATELET ESTIMATE NORMAL
--- NOTE | 2020-04-22 14:21 | NUR ---
DECREASED O2 90%
--- NOTE | 2020-04-22 20:27 | NUR ---
PT TX ONLY LASTED APPROX. 2 HRS AND RESULTED IN SLIGHTLY OVER 1L OF FLUID REMOVED. PT WASN'T ON ANY PRESSORS TO TITRATE, AND B/P CONTINUALLY DROPPED. THIS DIALYSIS NURSE WAS NOT MADE AWARE THAT ALBUMIN WAS ORDERED WITH TX OR IT WOULD HAVE BEEN HUNG.
--- NOTE | 2020-04-22 21:34 | NUR ---
pt vent alarming INCREASED DIPRIVAN WILL MONITOR
--- NOTE | 2020-04-22 22:15 | NUR ---
SPOKE WITH DR CAMP REGARDING NEW PATIENT CONSULT. NEW ORDERS RECEIVED
--- NOTE | 2020-04-22 22:45 | NUR ---
VENT ALARMING SUCTIONED PER RT MODERATE AMOUNT OF THICK SECRETIONS HEART RATE UP PAGED DR CAMP INFORMED OF HEART RATE AND PT INCREASED RESP RATE AGAINST VENT. WANTED VECURONIUM GTT INFORMED PHARMACY NOT HERE THAT PER CHARGE NURSE WE ARE NOT ABLE TO MIX VEC DRIP. HE ORDERED PRN VEC AND PHARMACY TO MIX DRIP IN AM.
[2020-04-23] VITALS (79 sets, daily range): BP systolic 73–172; BP diastolic 47–91
[2020-04-23 06:25] LABS: HEMOGLOBIN 12.4 g/dL (13.5-17.5); MCH 28.1 pg (26.0-34.0); MCHC 32.6 g/dL (31.0-37.0); MCV 86.2 fL (80.0-100.0); MEAN PLATELET VOLUME 9.1 fL (7.4-10.4); PLATELET COUNT 287 10x3/uL (130-400); RBC 4.41 10x6/uL (4.20-6.10); RDW 14.8 % (11.5-14.5); WBC 29.2 10x3/uL (4.8-10.8)
[2020-04-23 06:51] LABS: LYMPHOCYTES 2 % (15-50); NEUTROPHILS 98 % (40-80); PLATELET ESTIMATE NORMAL
--- NOTE | 2020-04-23 06:52 | NUR ---
DR FLANNERY HERE ORDERED TO START BACK LEVOPHED. AND GIVE METOPROLOL IV FOR 140 HEART RATE
[2020-04-23 06:57] LABS: ANION GAP 23.7 mmol/L (8-16); CALCIUM 8.6 mg/dL (8.5-10.1); CARBON DIOXIDE 19.9 mmol/L (21.0-32.0); CREATININE - SERUM 8.2 mg/dL (0.6-1.3); POTASSIUM - SERUM 5.6 mmol/L (3.5-5.1); VANCOMYCIN - RANDOM 19.2 ug/mL (10.0-20.0)
--- NOTE | 2020-04-23 07:15 | NUR ---
SPOKE WITH AIDEE IN PHARMACY ABOUT VEC DRIP REPLACING THE PRN VEC ORDER SHE STATED SHE WOULD INFORM PHARMACIST AND GET DRIP TO UNIT
--- NOTE | 2020-04-23 08:00 | NUR ---
PATIENT COLD AND CLAMPY, LEVOPHED GTT AT 5 MCG/MIN. VECURIOUM STARTED. 1 MCG/KG/MIN. MONITOR ST . PATIENT SEDATED ON DIPRIVAN AT 20 MCG KG MIN. FENTANYL AT 600 MCG/MIN.
--- NOTE | 2020-04-23 09:46 | NUR ---
DR. SHEPHERD CALLED ABOUT REPLACING ANTONIO AND YAYO HAY. CONSENT RECEIVED FROM BARRY BOYD. GIVEN UPDATE ON PATIENT CONDITION.
--- NOTE | 2020-04-23 13:02 | NUR ---
DIALYSIS IN PROGRESS. VANCOMYCIN TO BE GIVEN AFTER DIALYSIS
--- NOTE | 2020-04-23 17:00 | NUR ---
HIBCLENS BATH GIVEN WITH COMPLETE LINEN CHANGE. RASH NOTED IN BILATERAL AXILLA, RIGHT GREATER THAN LEFT. BLACKWELL CATH CARE DONE. 60 CC OF GLUCERNA GIVEN PER OG TUBE. MEDS GIVEN PER OG, TUBE FLUSHED. SMALL AMOUNT BROWN URINE IN TUBING NONE IN BAG. FENTANYL DECREASED TO 450 MCG/HOUR. DIPRIVAN 20 MEQ KG MINE. LEVOPHED STILL AT 5 MCG. JKVERCU AT 0.4 MCG/KG/MIN. MONITOR ST 100 TO 140 DURING DAY. RESTING COMFORTABLY MINIMAL AMOUNT SUCTIONED PER ETT.
--- NOTE | 2020-04-23 19:00 | NUR ---
REPORT RECEIVED INITIAL ASSESSMENT COMPLETE. PT SEDATED SEE IV DRIP FLOWSHEET FOR CHANGES. VENT PER RT. CM READING ST 125.ALARMS ON AND AUDIBLE. ORAL CARE PROVIDED AND REPOSITIONED. WILL CONTINUE TO MONITOR
--- NOTE | 2020-04-23 21:00 | NUR ---
DR FLANNERY CALLED FOR UPDATE NO NEW ORDERS AT THIS TIME
--- NOTE | 2020-04-23 21:48 | NUR ---
PTS CALLED GAVE PASSCODE. UPDATED AND ANSWERED QUESTIONS
[2020-04-24] VITALS (70 sets, daily range): BP systolic 68–140; BP diastolic 46–95
[2020-04-24 04:34] LABS: BASOPHILS 0.1 % (0-2); EOSINOPHILS 1.2 % (0-7); HEMATOCRIT 36.9 % (42.0-54.0); HEMOGLOBIN 11.7 g/dL (13.5-17.5); IMMATURE GRANULOCYTES 1.2 % (0-5); LYMPHOCYTES 2.5 % (15-50); MCH 27.7 pg (26.0-34.0); MCHC 31.7 g/dL (31.0-37.0); MCV 87.2 fL (80.0-100.0); MEAN PLATELET VOLUME 8.8 fL (7.4-10.4); MONOCYTES 3.6 % (2-11); NEUTROPHILS 91.4 % (40-80); PLATELET COUNT 258 10x3/uL (130-400); RBC 4.23 10x6/uL (4.20-6.10)
[2020-04-24 04:45] LABS: WBC 17.9 10x3/uL (4.8-10.8)
[2020-04-24 05:14] LABS: CALC OSMOLALITY 287 mosm/kg (275-300); CALCIUM 8.3 mg/dL (8.5-10.1); CARBON DIOXIDE 21.6 mmol/L (21.0-32.0); CHLORIDE - SERUM 97 mmol/L (98-107); CREATINE KINASE 459 UL (21-232); CREATININE - SERUM 6.2 mg/dL (0.6-1.3); GLUCOSE 118 mg/dL (74-106); POTASSIUM - SERUM 5.2 mmol/L (3.5-5.1); SODIUM 133 mmol/L (136-145); UREA NITROGEN 71 mg/dL (7-18); VANCOMYCIN - RANDOM 24.9 ug/mL (10.0-20.0); eGFR NON AFRICAN AMERICAN 10 mL/min (90-120)
[2020-04-24 05:18] LABS: CKMB 2.6 U/L (0.0-3.6)
--- NOTE | 2020-04-24 05:30 | NUR ---
DR MCCALLUM HERE FOR ROUNDS
--- NOTE | 2020-04-24 06:00 | NUR ---
DR FLANNERY WANTED BLACKWELL DISCONTINUED. BLACKWELL REMOVED PER ORDER
--- NOTE | 2020-04-24 09:30 | NUR ---
DR. SHEPHERD HERE, IN [employer]CHOOL BUS OPERATOR ARTERIAL LINE PLACED LEFT RADIAL. LEFT FEMEROL YAYO REMOVED. PRESSURE HELD NO BLEEDING OR BRUSIING AT SITE. GUIDE WIRE PLACED AND NEW TRIALYSIS PLACED. STERILE DRESSING APPLIED.PATIENT TOLERATED FAIR. AFTER CHEST X-RAY DONE. LINE CLEARER FOR USE. ALL NEW LINES APPLIED.
[2020-04-25] VITALS (54 sets, daily range): BP systolic 69–129; BP diastolic 48–86
[2020-04-25 06:29] LABS: BASOPHILS 0.2 % (0-2); EOSINOPHILS 1.9 % (0-7); HEMOGLOBIN 11.8 g/dL (13.5-17.5); IMMATURE GRANULOCYTES 2.2 % (0-5); LYMPHOCYTES 6.1 % (15-50); MCH 27.6 pg (26.0-34.0); MCHC 31.9 g/dL (31.0-37.0); MCV 86.7 fL (80.0-100.0); MEAN PLATELET VOLUME 9.2 fL (7.4-10.4); NEUTROPHILS 86.6 % (40-80); PLATELET COUNT 285 10x3/uL (130-400); RBC 4.27 10x6/uL (4.20-6.10); RDW 15.3 % (11.5-14.5); WBC 16.2 10x3/uL (4.8-10.8)
[2020-04-25 06:58] LABS: ALBUMIN 1.5 g/dL (3.4-5.0); ANION GAP 24.8 mmol/L (8-16); BILIRUBIN - TOTAL 0.67 mg/dL (0.2-1.3); CALCIUM 8.2 mg/dL (8.5-10.1); CARBON DIOXIDE 19.2 mmol/L (21.0-32.0); MAGNESIUM - SERUM 2.9 mg/dL (1.8-2.4); VANCOMYCIN - RANDOM 21.2 ug/mL (10.0-20.0)
[2020-04-25 07:02] LABS: CREATININE - SERUM 8.7 mg/dL (0.6-1.3)
[2020-04-25 07:03] LABS: PHOSPHOROUS 10.3 mg/dL (2.5-4.9)
--- NOTE | 2020-04-25 08:54 | NUR ---
Nutrition follow-up: Intubated, sedated with propofol @ 16.2 ml/hr, vecuronium Nepro bolus 60 ml Q 4 hours 09/20 no TF bags available Labs reviewed Wt: 282# Dialysis 04/23, today Levophed started RDN following.
[2020-04-26] VITALS (73 sets, daily range): BP systolic 96–139; BP diastolic 51–88
[2020-04-26 07:10] LABS: CREATININE - SERUM 8.7 mg/dL (0.6-1.3); VANCOMYCIN - RANDOM 15.2 ug/mL (10.0-20.0)
[2020-04-26 08:05] LABS: BASOPHILS 0.5 % (0-2); EOSINOPHILS 3.2 % (0-7); HEMATOCRIT 33.9 % (42.0-54.0); HEMOGLOBIN 10.8 g/dL (13.5-17.5); IMMATURE GRANULOCYTES 5.6 % (0-5); LYMPHOCYTES 6.5 % (15-50); MCH 27.6 pg (26.0-34.0); MCHC 31.9 g/dL (31.0-37.0); MCV 86.7 fL (80.0-100.0); MEAN PLATELET VOLUME 9.1 fL (7.4-10.4); MONOCYTES 3.7 % (2-11); NEUTROPHILS 80.5 % (40-80); PLATELET COUNT 279 10x3/uL (130-400); RBC 3.91 10x6/uL (4.20-6.10); RDW 15.3 % (11.5-14.5); WBC 17.7 10x3/uL (4.8-10.8)
[2020-04-26 08:12] LABS: ALBUMIN 1.6 g/dL (3.4-5.0); ANION GAP 26.4 mmol/L (8-16); BILIRUBIN - TOTAL 0.6 mg/dL (0.2-1.3); CALCIUM 7.7 mg/dL (8.5-10.1); CARBON DIOXIDE 17.3 mmol/L (21.0-32.0); CREATININE - SERUM 8.8 mg/dL (0.6-1.3); POTASSIUM - SERUM 5.7 mmol/L (3.5-5.1); PROTEIN - SERUM 6.2 g/dL (6.4-8.2)
--- NOTE | 2020-04-26 09:08 | NUR ---
SPOKE WITH RENAL PHYSICIAN, NOTIFIED OF LABS INCLUDING CRITICAL LABS.
--- NOTE | 2020-04-26 10:14 | NUR ---
SPOKE WITH PTS , UPDATES PROVIDED. DR ROMAN ALSO SPOKE WITH AND UPDATED PTS . NO ACUTE DISTRESS NOTED. WILL CONTINUE PLAN OF CARE.
--- NOTE | 2020-04-26 11:01 | NUR ---
PTS HERE TO VISIT PT/LOOKING THROUGH GLASS DOOR AND TALKING TO PT VIA MONITOR WHICH IN IN ROOM. UPDATES PROVIDED. VSS. WILL CONTINUE PLANO OF CARE.
[2020-04-27] VITALS (85 sets, daily range): BP systolic 100–134; BP diastolic 52–85
[2020-04-27 04:35] LABS: CREATININE - SERUM 10.8 mg/dL (0.6-1.3); VANCOMYCIN - RANDOM 34.7 ug/mL (10.0-20.0)
[2020-04-27 07:36] LABS: BASOPHILS 0.3 % (0-2); EOSINOPHILS 4.7 % (0-7); HEMATOCRIT 31.7 % (42.0-54.0); IMMATURE GRANULOCYTES 6.4 % (0-5); LYMPHOCYTES 6.2 % (15-50); MCH 27.6 pg (26.0-34.0); MCHC 31.5 g/dL (31.0-37.0); MCV 87.6 fL (80.0-100.0); MEAN PLATELET VOLUME 9.3 fL (7.4-10.4); MONOCYTES 6.6 % (2-11); NEUTROPHILS 75.8 % (40-80); PLATELET COUNT 271 10x3/uL (130-400); RBC 3.62 10x6/uL (4.20-6.10); RDW 15.3 % (11.5-14.5)
[2020-04-27 07:40] LABS: WBC 12.1 10x3/uL (4.8-10.8)
[2020-04-27 07:45] LABS: ALBUMIN 1.6 g/dL (3.4-5.0); ANION GAP 27.8 mmol/L (8-16); BILIRUBIN - TOTAL 0.71 mg/dL (0.2-1.3); CALCIUM 7.2 mg/dL (8.5-10.1); CARBON DIOXIDE 15.5 mmol/L (21.0-32.0)
[2020-04-27 07:48] LABS: PHOSPHOROUS 9.3 mg/dL (2.5-4.9)
[2020-04-27 07:49] LABS: POTASSIUM - SERUM 6.3 mmol/L (3.5-5.1)
--- NOTE | 2020-04-27 08:15 | NUR ---
BUN AND POTASSIUM CALLED TO DR. FLANNERY.
--- NOTE | 2020-04-27 10:00 | NUR ---
TALKED TO ON PHONE, UPDATE GIVEN, DISCUSS LAB, HEART RATE, LEVOPHED MAX OUT. FEELVin WILL NOT TOLERATE DIALYSIS AT THIS TIME. STATES SHE DOES NOT WANT TO EXTUBATED TODAY, BUT STATES THAT SHE KNOWS THAT ULTIMATELY IT WILL BE DONE. EMOTIONAL SUPPORT PROVIDED
--- NOTE | 2020-04-27 10:07 | NUR ---
Nutrition follow-up: Pt current NPO; OGT in place Intubated, sedated Maxed out on Levophed Labs reviewed; renal function worse and pt not stable for dialysis at this time RDN following.
--- NOTE | 2020-04-28 09:25 | MORECARE ---
CASE MANAGEMENT DISCHARGE SUMMARY PATIENT: JOSSIE BOYD UNIT: [id number] ADM DATE: 04/12/20 AGE: 59 : 58 SEX: M ROOM/BED: D.2313 AUTHOR: SANDY,DOC PHYSICIAN: REFERRING PHYSICIAN: SHA GARZA MD DATE OF SERVICE: 04/28/20 Discharge Plan Patient Name: JOSSIE BOYD Facility: [facility]:[place] : 1960 Planned Disposition: Anticipated Discharge Date: Discharge Date: 04/28/2020 Expected LOS: Initial Reviewer: [email or web address] Initial Review Date: 04/12/2020 Generated: 04/28/20 10:25 am DCP- Discharge Planning Updated by [email or web address]: Luda Moore on 04/15/20 8:[address] Patient Name: JOSSIE BOYD Admission Status: ER Accout number: [id number] Admission Date: 04-12-2020 : 1960 Admission Diagnosis:COVID-19 Attending: SHA GARZA Current LOS: 3 Anticipated DC Date: Planned Disposition: Primary Insurance: [employer] PPO Discharge Planning Comments: CM called and spoke with patient's Veronica to complete initial dc planning assessment. CM educated patient on the CM role and verbal consent given by patient to complete assessment. Patient lives at home with family. Patient is independent. At discharge patient plans to return home and feels this is a safe discharge. CM discussed availability of home health, rehab services, and medical equipment. Patient will have family to transport home. Patient denied known discharge needs at this time. CM will continue to follow and will assist as needed with dc plans/needs. Casing Man: Luda Moore DCPIA - Discharge Planning Initial Assessment Updated by [email or web address]: Luda Moore on 04/15/20 9:15 pm * Is the patient Alert and Oriented? No * How many steps to enter\exit or inside your home? * PCP [facility]NALISEO * Pharmacy [facility] * Preadmission Environment Home with Family * ADLs Independent * Equipment None * List name and contact numbers for known caregivers / representatives who currently or will assist patient after discharge: VERONICA BOYD - - [phone] * Verbal permission to speak to the caregivers and representatives has been obtained from the patient. Yes * Community resources currently utilized None * Additional services required to return to the preadmission environment? No * Can the patient safely return to the preadmission environment? Yes * Has this patient been hospitalized within the prior 30 days at any hospital? No Last DP export: 04/15/20 8:23 p Patient Name: JSOSIE BOYD Page [id number] at 0925 All edits/amendments must be made on the electronic document DICTATION DATE: 04/28/20924 PUNCH HAND: VIRGINIE 04/28/20924 RPT#: [id number] DC DATE:04/28/20 STATUS: DIS IN [facility] [address] [place] [address] END OF REPORT
== END 2020-04-28 03:00 | DRG 870 ==
LOC: D.ER 07:22 → D.EDHOLD 09:23 → D.ICU 09:23
PROVIDERS: Emergency Medicine; Family Medicine; Internal Medicine; Internal Medicine Pulmonary Disease; ADMIT Family Medicine; ATTEND Family Medicine
PROC: 04HY32Z Insertion of Monitoring Device into Lower Artery, Percutaneous Approach (ICD-10-PCS; principal; 2020-04-12)
PROC: 4A133B1 Monitoring of Arterial Pressure, Peripheral, Percutaneous Approach (ICD-10-PCS; 2020-04-12)
PROC: 4A133J1 Monitoring of Arterial Pulse, Peripheral, Percutaneous Approach (ICD-10-PCS; 2020-04-12)
PROC: 05H633Z Insertion of Infusion Device into Left Subclavian Vein, Percutaneous Approach (ICD-10-PCS; 2020-04-12)
PROC: 5A1955Z Respiratory Ventilation, Greater than 96 Consecutive Hours (ICD-10-PCS; 2020-04-13)
PROC: 0BH17EZ Insertion of Endotracheal Airway into Trachea, Via Natural or Artificial Opening (ICD-10-PCS; 2020-04-13)
PROC: 05PY33Z Removal of Infusion Device from Upper Vein, Percutaneous Approach (ICD-10-PCS; 2020-04-14)
PROC: 05H633Z Insertion of Infusion Device into Left Subclavian Vein, Percutaneous Approach (ICD-10-PCS; 2020-04-14)
PROC: 03HY32Z Insertion of Monitoring Device into Upper Artery, Percutaneous Approach (ICD-10-PCS; 2020-04-24)
PROC: 05H633Z Insertion of Infusion Device into Left Subclavian Vein, Percutaneous Approach (ICD-10-PCS; 2020-04-24)
DX: A41.9 Sepsis, unspecified organism (principal); U07.1 COVID-19; J96.01 Acute respiratory failure with hypoxia; J18.9 Pneumonia, unspecified organism; N17.0 Acute kidney failure with tubular necrosis; R65.21 Severe sepsis with septic shock; R78.81 Bacteremia; E87.2 Acidosis; E87.1 Hypo-osmolality and hyponatremia; I48.92 Unspecified atrial flutter; K21.9 Gastro-esophageal reflux disease without esophagitis; D64.9 Anemia, unspecified; F32.9 Major depressive disorder, single episode, unspecified